=== PATIENT | female | born 1970 | race Caucasian/White ===

== ENCOUNTER 2020-09-26 07:27 | Day surgery (SDC) | payer MEDICAID ==
[2020-09-26] MEDS ORDERED: Dextrose 5%-Lactated Ringers 1,000 ML IV SCH (08:15)
[2020-09-26] MEDS ORDERED: Midazolam 1 MG/ML 2 ML SDV ONE (09:14)
[2020-09-26] MEDS ORDERED: fentaNYL 100 MCG/2 ML SDV ONE (09:14)
[2020-09-26] MEDS ORDERED: Propofol 200 MG/20 ML SDV ONE ×2 (09:14→09:49)
[2020-09-26] MEDS ORDERED: Sodium Chloride 0.9% 1,000 ML IV SCH (11:00)
[2020-09-26] MEDS ORDERED: Sodium Chloride 0.9% 250 ML IV SCH (11:00)
[2020-09-26] MEDS ORDERED: ferumoxytoL 510 MG in Sodium Chloride 0.9% 100 ML IV ONE (11:00)
[2020-09-26 12:19] VITALS: BP 160/76; PULSE 103
--- NOTE | 2020-10-11 10:30 | OR ---
DATE OF PROCEDURE: 09/26/2020 SURGEON: Sameer Grande MD PREOPERATIVE DIAGNOSIS: History of gastrointestinal bleeding. POSTOPERATIVE DIAGNOSES: 1. Mild antral gastritis. 2. Colonoscopy with poor prep, but otherwise normal exam to the level of transverse colon. OPERATIVE PROCEDURE: 1. Upper GI endoscopy with biopsies of antrum for CLOtest. 2. Flexible colonoscopy to transverse colon. ANESTHESIA: IV sedation. INDICATION FOR PROCEDURE: A 49-year-old presenting with history of some GI bleeding in terms of black stools, as such she presently has been started on omeprazole at 20 mg a day and she has not had any obvious GI bleeding symptoms in terms of black or bloody stools in recent days. Plan is to proceed with upper GI endoscopy with biopsies along with colonoscopy with biopsies and/or polypectomy as indicated. Potential risk including bleeding and perforation were discussed, and the patient wishes to proceed. DETAILS OF PROCEDURE: The patient was taken to the operating room, placed in a left lateral decubitus position, IV sedation was administered, after which the upper GI endoscope was passed orally through the length of the esophagus, into the stomach with retroflexion view of the fundus and thereafter through the pyloric channel into the proximal duodenum. Findings included some very mild antral gastritis. Otherwise, the upper endoscopy was normal. There were no erosions, ulcers, or bleeding sites seen. Biopsies obtained from the antrum and sent for CLOtest for H. pylori. Minimal bleeding from the biopsy sites was seen and the procedure was then concluded. Attention was then taken to the colonoscopy. The patient had initial digital rectal exam which was unremarkable. The scope was then passed into the rectum with retroflexion revealing uncomplicated hemorrhoidal columns. Scope was eventually passed to the level of the transverse colon. The patient did have quite a poor prep with large amount of both liquid and solid stools present to the level of transverse colon, no obvious pathology was seen, and we were not able to pass the scope more proximally due to the poor prep, and the scope was then withdrawn, the above findings reconfirmed. Recommendation would be to continue the patient on the present omeprazole treatment. This appeared to be treating the GI bleeding site satisfactorily. If the CLOtest is positive, she should be started on one of the anti H. Pylori regimen. Otherwise, with regard to the colon, one might consider a Cologuard examination in the next year or two, and if at some point she was felt to require a followup colonoscopy, she should probably take 3 doses of the MiraLAX 119 g with 32 ounces of Gatorade rather than the standard 2 doses to facilitate a more complete prep. The patient had a ferritin measured today which was only 5, and given this she will be receiving 510 mg of Feraheme today and scheduled for a repeat dose in 7 to 10 days. Sameer Grande MD /[id number]
== END 2020-09-26 12:35 | disposition home or self-care (01) ==
LOC: JP.SDS 07:27
PROVIDERS: ATTEND Surgery
DX: K92.1 Melena (principal); K29.70 Gastritis, unspecified, without bleeding; K64.9 Unspecified hemorrhoids; I10 Essential (primary) hypertension; F17.210 Nicotine dependence, cigarettes, uncomplicated
CPT/HCPCS: 36415; 43239; 45378; 82728; 85027; 87081; J2250; J2704; J3010; J7050; J7121; Q0138

== ENCOUNTER 2021-02-26 19:20 | Emergency (ER) | payer MEDICAID ==
[2021-02-26] MEDS ORDERED: Ondansetron 4 MG/2 ML SDV IVPUSH ONE (19:50)
[2021-02-26] MEDS ORDERED: Aluminum Hydroxide/Magnesium Hydroxide/Simethicone Susp 30 ML Cup PO STA (19:51)
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
[2021-02-26 19:59] VITALS: BP 131/69; PULSE 74
== END 2021-02-26 20:59 | disposition home or self-care (01) ==
LOC: JP.ED 19:20
DX: K21.00 Gastro-esophageal reflux disease with esophagitis, without bleeding (principal); E66.9 Obesity, unspecified; Z79.899 Other long term (current) drug therapy; Z88.0 Allergy status to penicillin; Z88.6 Allergy status to analgesic agent; Z88.8 Allergy status to other drugs, medicaments and biological substances; Z68.33 Body mass index [BMI] 33.0-33.9, adult; Z72.0 Tobacco use
CPT/HCPCS: 36415; 80053; 83690; 85025; 96374; 99283; 99284-25; A9270-GY; J2405

== ENCOUNTER 2021-10-19 14:52 | Emergency (ER) | payer MEDICAID ==
[2021-10-19] MEDS ORDERED: Sodium Chloride 0.9% 10 ML Syringe FLUSH PRN (16:24)
[2021-10-19] MEDS ORDERED: LORazepam 2 MG/ML SDV IVPUSH ONE (16:25)
[2021-10-19] MEDS ORDERED: Sodium Chloride 0.9% 1,000 ML IV SCH (16:30)
[2021-10-19] MEDS ORDERED: Iopamidol 755 Mg/ML 100 ML Bottle IV SCH (16:45)
[2021-10-19] MEDS ORDERED: Sodium Chloride 0.9% 100 ML IV SCH (16:45)
[2021-10-19] MEDS ORDERED: Acetaminophen 325 MG Tab PO ONE (17:02)
[2021-10-19 17:35] VITALS: BP 159/98; PULSE 95
[2021-10-19] MEDS ORDERED: Apixaban 5 MG Tab PO STA ×2 (18:25→18:32)
== END 2021-10-19 19:11 | disposition home or self-care (01) ==
LOC: JP.ED 14:52
DX: I82.412 Acute embolism and thrombosis of left femoral vein (principal); I10 Essential (primary) hypertension; K21.9 Gastro-esophageal reflux disease without esophagitis; E66.9 Obesity, unspecified; Z72.0 Tobacco use; Z68.41 Body mass index [BMI] 40.0-44.9, adult; Z88.0 Allergy status to penicillin; Z88.5 Allergy status to narcotic agent; Z88.8 Allergy status to other drugs, medicaments and biological substances; Z79.899 Other long term (current) drug therapy
CPT/HCPCS: 36415; 71275; 80048; 85025; 93971; 96374; 99284; A9270; J2060; J7030; Q9967

== ENCOUNTER 2023-04-18 21:28 | Emergency (ER) | payer MEDICAID ==
[2023-04-18 21:52] VITALS: BP 118/38; PULSE 89
[2023-04-18 22:32] LABS: BASOPHILS ABSOLUTE AUTO 0.03 K/uL (0.00-0.10); BASOPHILS PERCENT AUTO 0.4 % (0.1-1.3); EOSINOPHILS PERCENT AUTO 0.1 % (0.0-5.4); HEMATOCRIT 43.2 % (34.3-46.0); HEMOGLOBIN 13.7 g/dL (11.2-15.5); IMMATURE GRAN PERCENT AUTO 0.3 % (0.0-0.7); LYMPHOCYTES ABSOLUTE AUTO 1.02 K/uL (0.8-3.3); LYMPHOCYTES PERCENT AUTO 12.9 % (11.4-47.7); MEAN CORPUSCULAR HGB CONC 31.7 g/dL (31.6-35.5); MONOCYTES ABSOLUTE AUTO 0.29 K/uL (0.20-0.90); MONOCYTES PERCENT AUTO 3.7 % (3.3-12.6); NEUTROPHILS ABSOLUTE AUTO 6.51 K/uL (1.0-7.6); NEUTROPHILS PERCENT AUTO 82.6 % (40.0-78.1); PLATELET COUNT,PLT 179 K/uL (130-375); RED BLOOD CELL COUNT 5.47 M/uL (3.77-5.24); WHITE BLOOD CELL COUNT,WBC 7.9 K/uL (3.2-11.0)
[2023-04-18 22:33] LABS: EOSINOPHILS ABSOLUTE AUTO 0.01 K/uL (0.00-0.40); IMMATURE GRAN ABSOLUTE AUTO 0.02 K/uL (0.00-0.23)
[2023-04-18 22:46] LABS: CALCIUM 9.1 mg/dL (8.5-10.1); CREATININE 0.8 mg/dL (0.6-1.0); EST CRCL DRUG DOSING (CG) 82.98 mL/min; POTASSIUM,K 4.3 mmol/L (3.6-5.2)
[2023-04-18 22:48] LABS: ANION GAP 9.3 mmol/L (5.0-14.0)
== END 2023-04-18 23:23 | disposition home or self-care (01) ==
LOC: JP.ED 21:28
DX: K21.9 Gastro-esophageal reflux disease without esophagitis (principal); Z88.5 Allergy status to narcotic agent; Z88.0 Allergy status to penicillin; Z88.8 Allergy status to other drugs, medicaments and biological substances
CPT/HCPCS: 36415; 80048; 85025; 99283; 99284

== ENCOUNTER 2025-05-29 07:17 | Inpatient (IN) | payer MEDICAID ==
[2025-05-29] MEDS ORDERED: methylPREDNISolone Sod Succ 125 MG in Dextrose 5% in Water 100 ML IV ONE (08:56)
[2025-05-29] MEDS: methylPREDNISolone Sodium Succinate 125 MG/2 ML SDV IV ONE (09:18)
[2025-05-29] MEDS: Albuterol 0.083% 2.5 MG/3 ML Neb Soln NEB ONE ×2 (09:18→12:06)
[2025-05-29] MEDS: LORazepam 2 MG/ML SDV IVPUSH ONE (09:18)
[2025-05-29 09:21] LABS: BASOPHILS ABSOLUTE AUTO 0.07 K/uL (0.00-0.10); BASOPHILS PERCENT AUTO 0.8 % (0.1-1.3); EOSINOPHILS ABSOLUTE AUTO 0.11 K/uL (0.00-0.40); EOSINOPHILS PERCENT AUTO 1.3 % (0.0-5.4); IMMATURE GRAN ABSOLUTE AUTO 0.03 K/uL (0.00-0.23); IMMATURE GRAN PERCENT AUTO 0.4 % (0.0-0.7); LYMPHOCYTES ABSOLUTE AUTO 2.01 K/uL (0.8-3.3); LYMPHOCYTES PERCENT AUTO 24.2 % (11.4-47.7); MONOCYTES ABSOLUTE AUTO 0.56 K/uL (0.20-0.90); MONOCYTES PERCENT AUTO 6.8 % (3.3-12.6); NEUTROPHILS ABSOLUTE AUTO 5.51 K/uL (1.0-7.6); NEUTROPHILS PERCENT AUTO 66.5 % (40.0-78.1); PLATELET COUNT,PLT 258 K/uL (130-375); RED BLOOD CELL COUNT 4.94 M/uL (3.77-5.24); WHITE BLOOD CELL COUNT,WBC 8.3 K/uL (3.2-11.0)
[2025-05-29] MEDS: Iopamidol 755 Mg/ML 100 ML Bottle IV SCH (09:39)
[2025-05-29 09:45] LABS: A/G RATIO 0.6 (1.2-2.2); ALANINE AMINOTRANSFERASE,ALT 14 U/L (12-78); ASPARTATE AMNIOTRANSFERASE,AST 13 U/L (15-37); BILIRUBIN TOTAL 0.2 mg/dL (0.2-1.0); BLOOD UREA NITROGEN,BUN 8 mg/dL (7-18); CARBON DIOXIDE,CO2 33 mmol/L (21-32); CHLORIDE,CL 100 mmol/L (100-108); CREATININE 0.6 mg/dL (0.6-1.0); EST CRCL DRUG DOSING (CG) 108.13 mL/min; ESTIMATED GFR 107 mL/min (>60); GLUCOSE RANDOM 128 mg/dL (74-106); POTASSIUM,K 3.3 mmol/L (3.6-5.2); PROTEIN TOTAL,TP 8.6 g/dL (6.4-8.2); SODIUM,NA 140 mmol/L (140-148)
[2025-05-29] MEDS: Magnesium Sulfate 2 GM/50 mL 2 GM in Premix Bag 1 BAG IV ONE (12:06)
[2025-05-29] MEDS ORDERED: Buprenorphine/Naloxone 8-2 MG Tab.SL SL ONE (15:03)
[2025-05-29] MEDS: Buprenorphine/Naloxone 8-2 MG Tab.SL SL ONE (15:33)
[2025-05-29] MEDS: Buprenorphine/Naloxone 8-2 MG Tab.SL SL SCH (20:00)
[2025-05-29] MEDS: Divalproex Sodium Delayed-Release 250 MG Tab.CR PO SCH (20:02)
[2025-05-30 05:39] LABS: PLATELET COUNT,PLT 241.0 K/uL (130-375); RED BLOOD CELL COUNT 4.42 M/uL (3.77-5.24); WHITE BLOOD CELL COUNT,WBC 9.7 K/uL (3.2-11.0)
[2025-05-30 06:00] LABS: A/G RATIO 0.5 (1.2-2.2); ALANINE AMINOTRANSFERASE,ALT 12 U/L (12-78); ASPARTATE AMNIOTRANSFERASE,AST 11 U/L (15-37); BILIRUBIN TOTAL 0.1 mg/dL (0.2-1.0); BLOOD UREA NITROGEN,BUN 9 mg/dL (7-18); CARBON DIOXIDE,CO2 34 mmol/L (21-32); CHLORIDE,CL 100 mmol/L (100-108); CREATININE 0.7 mg/dL (0.6-1.0); EST CRCL DRUG DOSING (CG) 92.68 mL/min; ESTIMATED GFR 103 mL/min (>60); GLUCOSE RANDOM 157 mg/dL (74-106); POTASSIUM,K 4.1 mmol/L (3.6-5.2); PROTEIN TOTAL,TP 7.7 g/dL (6.4-8.2); SODIUM,NA 140 mmol/L (140-148)
[2025-05-30] MEDS ORDERED: Sodium Chloride 0.9% 10 ML Syringe IV PRN (10:04)
[2025-05-30 11:29] VITALS: BP 141/77
[2025-05-30 14:32] VITALS: PULSE 98
== END 2025-05-30 15:10 | disposition home or self-care (01) | DRG 189 ==
LOC: JP.ED 07:17 → JP.MS 16:03
PROVIDERS: ADMIT Student in an Organized Health Care Education/Training Program; ATTEND Student in an Organized Health Care Education/Training Program
DX: J96.01 Acute respiratory failure with hypoxia (principal); J44.1 Chronic obstructive pulmonary disease with (acute) exacerbation; L97.312 Non-pressure chronic ulcer of right ankle with fat layer exposed; E66.2 Morbid (severe) obesity with alveolar hypoventilation; Z68.41 Body mass index [BMI] 40.0-44.9, adult; I10 Essential (primary) hypertension; F41.9 Anxiety disorder, unspecified; F31.9 Bipolar disorder, unspecified; K21.00 Gastro-esophageal reflux disease with esophagitis, without bleeding; F17.210 Nicotine dependence, cigarettes, uncomplicated; G47.00 Insomnia, unspecified; G62.9 Polyneuropathy, unspecified; Z86.16 Personal history of COVID-19; Z88.1 Allergy status to other antibiotic agents; Z88.6 Allergy status to analgesic agent; Z88.5 Allergy status to narcotic agent; Z88.0 Allergy status to penicillin; Z88.2 Allergy status to sulfonamides; Z79.899 Other long term (current) drug therapy; Z79.52 Long term (current) use of systemic steroids; Z86.718 Personal history of other venous thrombosis and embolism; Z98.51 Tubal ligation status; Z98.1 Arthrodesis status
CPT/HCPCS: 36415; 71046; 71046-26; 71275; 71275-26; 80053; 85025; 85027; 94640; A9270-GY; J0574-GY; J0696; J1650; J2060; J2919; J3475; J7030; J7512; Q9967